=== PATIENT | male | born 1940 ===

== ENCOUNTER → 2016-06-27 | Outpatient (CLI) | payer MEDICARE ==
[~2016-06-27] VITALS: Ht 177.8 cm; Wt 80.7 kg
[~2016-06-27] MED LIST: LEXISCAN IV ONE
--- NOTE | 2016-06-27 20:38 | STRESS ---
DATE OF SERVICE: 06/27/2016 STRESS TEST WITH NUCLEAR IMAGING STUDY INDICATIONS: A 76-year-old gentleman with chest pain. He has history of hypertension and smoking. Stress test was recommended to rule out any coronary ischemia to explain the patient's new onset of chest pain symptoms. The patient presented to [facility] in a fasting condition as an outpatient, baseline blood pressure was 118/87, heart rate of 73. EKG showed sinus rhythm without ischemic changes. The patient was injected 0.4 mg of regadenoson followed by the stress dose of technetium sestamibi, 1 minute post-infusion blood pressure was 102/62, heart rate of 92. Five minutes post-infusion blood pressure was 103/69, heart rate of 75. PVCs were noted. No other arrhythmias seen. Recovery phase was uneventful. Myocardial perfusion imaging study was performed using 10.6 mCi of technetium sestamibi resting dose and 33.7 stress dose. Myocardial perfusion imaging study showed the following. 1. Study quality was fair. 2. Attenuation artifacts were corrected with prone position. 3. LV cavity was stable. No evidence of TID. 4. SPECT perfusion images showed 2 perfusion defects. The first was an inferoseptal perfusion defect, medium in size, reversible, persists during prone position. The second was anteroapical defect persistent during prone position with reversibility. 5. Gated function study showed inferior septal dyskinesia, EF 50%, stroke volume 27 mL. IMPRESSION: 1. Nondiagnostic stress portion of Lexiscan. 2. No EKG changes of ischemia. 3. No arrhythmia. 4. Normal hemodynamic response. 5. Myocardial perfusion imaging study showed inferior, septal, and anteroapical perfusion defect persistent during prone position indicating true ischemia, especially in the presence of inferior septal dyskinesia. 6. The study qualifies for moderate risk for obstructive coronary artery lesion. Clinical correlation is recommended, especially with new onset symptoms of angina. Gurmeet Faulkner MD DR: JAMAR/emelina JOB# [id number]
--- NOTE | 2016-06-29 15:27 | ECHO ---
DATE OF SERVICE: 06/27/2016 INDICATIONS: A 76-year-old gentleman with chest pain. Echocardiographic study was requested to evaluate any wall motion abnormality, structural heart disease and evaluation of any functional heart condition. FINDINGS: 1. Study quality was fair. 2. Underlying rhythm is sinus rhythm. 3. LV function was preserved. EF around 60%. Mild septal hypokinesia, moderate LVH. No LVOT obstruction. Septal thickness at maximum was 1.5 cm. 4. End-diastolic dimension was 5.1 cm. 5. No visible masses or clots in the LV cavity. 6. The septal wall was hypokinetic as mentioned. 7. RV size and EF were normal. 8. Mitral valve showed trace regurgitation, no stenosis. Doppler signal exam was showing mild diastolic impairment with equal E to A waves. Mitral valve mean gradient was 1.3 mmHg, no stenosis. 9. Aortic valve is calcified. Aortic valve mean velocity was 0.9 m/sec. Aortic valve area was above 3 cm2 by VTI method, normal readings. 10. Mild tricuspid regurgitation, no pericardial effusion. Pulmonary artery systolic pressure was between 25-30 mmHg. 11. Inferior vena cava was normal in size at 1.8 cm. IMPRESSION: 1. Preserved EF around 60% with septal hypokinesia. 2. Moderate concentric LVH. No LVOT obstruction. Normal LV dimension. 3. Normal RV size and EF. 4. Trace mitral regurgitation, no stenosis. 5. Early diastolic relaxation abnormality. 6. No aortic pathology. 7. Normal pulmonary artery systolic pressure. 8. No pericardial effusion. 9. Normal IVC size. Gurmeet Faulkner MD DR: JAMAR/emelina JOB# [id number]
== END | disposition home or self-care (01) ==
LOC: RT 08:38
PROVIDERS: ATTEND Internal Medicine
DX: I34.0 Nonrheumatic mitral (valve) insufficiency (principal)
CPT/HCPCS: 78452; 93017; 93307; A9500; J2785

== ENCOUNTER 2016-08-01 01:14 | Day surgery (SDC) | payer MEDICARE ==
[2016-07-28 10:39] VITALS: BP 115/63
--- NOTE | 2016-07-28 11:17 | DIREP ---
PROCEDURE:CHEST 2 VIEWS COMPARISON:None. INDICATIONS:PRE-OP HEART CATH FINDINGS: LUNGS/PLEURA:No significant pulmonary parenchymal abnormalities. No effusions. VASCULATURE:Normal. Unremarkable pulmonary vasculature. CARDIAC:Normal. No cardiac silhouette abnormality or cardiomegaly. MEDIASTINUM:Normal. No visible mass or adenopathy. BONES:Normal. No fracture or visible bony lesion. OTHER:Negative. CONCLUSION:Normal examination. Dictated by: Randy Mike MD on 07/28/2016 at 11:16 AM
[2016-07-28 12:53] LABS: BASOPHIL # 0.1 10^3/uL (0.0-0.1); BASOPHIL % 1.3 % (0.0-0.2); EOSINOPHIL # 0.1 10^3/uL (0.0-0.2); EOSINOPHIL % 1.2 % (0.0-5.0); HEMATOCRIT 49.9 % (37.0-53.0); LYMPHOCYTES # 2.6 10^3/uL (1.0-4.8); LYMPHOCYTES % 26.2 % (24.0-44.0); MEAN CELL HGB 31.2 pg (26-34); MEAN CELL HGB CONCENTRATION 34.1 g/dL (33-37); MEAN CORP VOLUME 91.6 fL (78-100); MEAN PLATELET VOLUME 10.6 fL (7.8-11.0); MONOCYTES # 0.9 10^3/uL (0.3-0.8); MONOCYTES % 9.3 % (5.0-12.0); NEUTROPHIL # 6.1 10^3/uL (1.8-7.7); NEUTROPHILS % 61.6 % (41.0-85.0); PLATELET COUNT 167 10^3/uL (150-400); RED CELL DISTRIBUTION WIDTH 13.8 % (11.5-14.5); WHITE BLOOD CELL 9.9 10^3/uL (4.5-11.0)
[2016-07-28 13:02] LABS: CALCIUM 8.9 mg/dL (8.4-10.5); CARBON DIOXIDE 24.2 mmol/L (20.0-32)
[2016-08-01] VITALS (15 sets, daily range): BP systolic 79–121; BP diastolic 50–68
[~2016-08-01] VITALS: Ht 177.8 cm; Wt 81.6 kg
[~2016-08-01 01:14] MED LIST changes: +BENADRYL PO ONE; -LEXISCAN IV ONE
[2016-08-01] MEDS ORDERED: CALAN ONE (06:16)
[2016-08-01] MEDS ORDERED: NS 1000ML 1,000 ML ONE ×2 (06:16→11:03)
[2016-08-01] MEDS ORDERED: HEPARIN ONE (06:16)
[2016-08-01] MEDS ORDERED: XYLOCAINE ONE (06:17)
[2016-08-01] MEDS ORDERED: NITROGLYCERIN 25MG/D5W 250ML 250 ML IV ONE (06:17)
[2016-08-01] MEDS ORDERED: SUBLIMAZE ONE (06:17)
[2016-08-01] MEDS ORDERED: VERSED ONE (06:17)
[2016-08-01] MEDS ORDERED: BENADRYL PO ONE (07:05)
[2016-08-01] MEDS ORDERED: BENADRYL PO STA (07:14)
[2016-08-01] MEDS ORDERED: BENADRYL PO PRN (07:30)
[2016-08-01] MEDS ORDERED: NS 1000ML 1,000 ML IV SCH ×2 (10:20→11:00)
[2016-08-01] MEDS ORDERED: NORCO 5 MG PO PRN (10:30)
--- NOTE | 2016-08-01 11:24 | [facility] ---
DATE OF SERVICE: 08/01/2016 PROCEDURES PERFORMED: 1. Left heart catheterization via right radial artery access. 2. Selective coronary angiography, left and right. 3. Left ventricular end diastolic pressure measurement. 4. Left ventriculography. COMPLICATIONS: None. BLOOD LOSS: Minimal, less than 10-15 mL of blood. INDICATIONS: 1. Abnormal stress test. 2. Multiple risk factors for coronary artery disease including hyperlipidemia and smoking. 3. Symptoms of shortness of breath, progressive. HISTORY OF PRESENT ILLNESS: The patient is a 76-year-old gentleman with history of smoking and hyperlipidemia, has been symptomatic with progressive shortness of breath and occasional chest pain. The patient's symptoms were examined with a stress test performed on 06/27/2016. The stress test findings were abnormal, showing multiple perfusion defects including the inferior, septal, and anteroapical defects with normal EF. With the finding of multiple perfusion defects on the nuclear imaging study in the presence of risk factors for coronary artery disease, the decision was made to proceed with coronary angiography and possible angioplasty. DESCRIPTION OF PROCEDURE: The patient was brought into the [facility] in a fasting condition on 08/01/2016, signed a proper consent. All risks and benefits were explained. All the questions were answered, lab results reviewed and allergies verified. Right wrist area was prepped and draped and sterilized with 1% lidocaine for local analgesia. A 6-Vietnamese sheath was inserted in the right radial artery without difficulty. This was then followed by advancing a . The patient received 4000 units of heparin intravenously for radial protection of heparin. A 6-[place] Friendship catheter was utilized to engage left and right coronary arteries, followed by advancing a pigtail catheter into the LV cavity across the aortic valve for LVEDP measurement and power injection LV gram in the BENDER projection. Careful examination of coronary angiography showed no evidence of any obstructive disease, mild to moderate coronary artery lesions were noted with normal EF. Therefore, decision was made to treat those lesions with medical management. Therefore, the catheters and wires were removed and a TR band applied in the right radial artery access site. The patient was educated on the results of coronary angiography as well as the significant others in the waiting room. The patient left the [facility] in stable condition without any hemodynamic instability or symptoms. HEMODYNAMICS: 1. Central aortic pressure at the opening of the case was 120/60, mean of 88 mmHg. 2. LVEDP was around 10 mmHg. 3. EF around 60%. No significant wall motion abnormality. 4. The ascending aorta was showing some dilatation without acute pathology. No significant dissection. 5. +1 MR was seen. 6. No gradient across the aortic valve on pullback of the pigtail catheter. ANGIOGRAPHIC FINDINGS: 1. Left main is a normal size vessel, relatively short, free of disease, minimally calcified, bifurcates to left anterior descending artery and left circumflex artery. 2. The left anterior descending artery was free of disease in the proximal segment. The mid segment showed minimal luminal irregularity around 20%. Distal LAD was free of disease, medium size vessel that wraps around the apex without significant disease. The first diagonal branch of the LAD was a large size, tortuous vessel, free of disease. Second and third diagonals were small, tortuous vessels without significant disease. 3. The circumflex artery is a medium size vessel, nondominant. The proximal segment was free of disease. The vessel tapers down to a small vessel after giving rise to a medium size, minimally diseased around 20% obtuse marginal branch. 4. The right coronary artery is a dominant vessel, large in size. The proximal part was free of disease. The mid segment showed a 30-40% nonobstructive lesion. Distal RCA was free of disease, bifurcates to RPDA and PLV branches, large size, tortuous vessels with around 20% disease, no obstructive lesion noted in the RCA territory. The SA brady branch was large, tortuous vessel. Multiple small acute marginal branches were noted. IMPRESSION: 1. Normal left main, short vessel, free of disease. 2. Minimal luminal irregularity of 20% in the LAD, mid segment. 3. Nondominant, free of disease circumflex artery. 4. Large, dominant RCA with 30-40% mid lesion. 5. Preserved EF around 60% with normal LVEDP around 10 mmHg. 6. The procedure was well tolerated without complications. RECOMMENDATIONS: 1. TR band protocol. 2. Optimize management of risk factors. 3. Secondary prevention of coronary artery disease. 4. Outpatient followup once the patient meets discharge criteria for same day discharge. Gurmeet Faulkner MD DR: JAMAR/emelina JOB# [id number]
== END 2016-08-01 13:29 | disposition home or self-care (01) ==
LOC: SDC 01:14
PROVIDERS: ATTEND Internal Medicine
DX: I25.119 Atherosclerotic heart disease of native coronary artery with unspecified angina pectoris (principal); I34.0 Nonrheumatic mitral (valve) insufficiency; E78.5 Hyperlipidemia, unspecified; R06.02 Shortness of breath; Z87.891 Personal history of nicotine dependence
CPT/HCPCS: 36415; 71020; 80048; 85025; 85610; 85660; 93458; C1769; C1887 ×2; C1894; J1644 ×2; J2250; J3010; J3490 ×2; J7030 ×2; Q0163; Q9967 ×2